=== PATIENT | female | born 1945 | race Caucasian/White ===

== ENCOUNTER → 2017-02-24 | Outpatient (CLI) | payer MEDICARE ==
[~2017-02-24] MED LIST: ALBU8I INH; ALPR0.5T3 PO; AMLO2.5T PO; ASPI-130 PO; ATOR80TA41 PO; CALC-197 PO; CARB25TA PO; FLON0.053; FORT200S; FOSI20TA PO; GLIM2TAB PO; GLUCTAB PO; KLOR10TA8 PO; METO25 PO; MISC1TAB9 PO; PLAV75TA PO; PRIL20TA2 PO; TAB-TAB PO
--- NOTE | 2017-02-27 10:02 | RSPPFT ---
DATE OF PROCEDURE: 02/24/17 COMMENTS: Spirometry with FVC of 2.1 predicted 2.6, FEV1 of 1.4 predicted 1.8, FEV1/FVC ratio 68% predicted 70%. No dramatic changes noticed post-bronchodilator acutely. IMPRESSION: On the basis of the above, patient's flow values show a minimal obstructive lung defect. Lung volumes are within the predicted range. Decreased DLCO.
== END ==
LOC: HRSP 12:47
PROVIDERS: ATTEND Internal Medicine Pulmonary Disease
DX: J98.4 Other disorders of lung (principal)
CPT/HCPCS: 94060; 94620; 94726; 94729

== ENCOUNTER 2017-09-25 01:16 | Emergency (ER) | payer MEDICARE ==
[2017-09-25 01:18] VITALS: BP 206/84; PULSE 107; RESP 16; TEMP 97.9; O2SAT 98
--- NOTE | 2017-09-25 01:52 | PD ---
HPI Chief Complaint: Diabetic Time Seen by Provider: 01:45 Travel History International Travel<30 days: No Contact w/Intl Traveler<30days: No Traveled to known affect area: No History of Present Illness HPI Patient is a 72-year-old female who last few days has had low blood sugars . She kept a diary and shows at some point last night she's been having 47 blood sugar sticks at home. She is on metformin and glimpiride, patient halved her dose last night of the sulfonylurea and still had a low sugar this morning felt shaky confused and diaphoretic She drank orange juice juice to correct it It did not work as it usually does...it did not bring her sugar up . Patient in the ER feels shaky confused sweaty She came by her own car she did not call EMS. Patient has a history of hypertension and non-insulin diabetic. Denies chest pain denies UTI symptoms has a mild congested feeling her nose only. No localized pain. Symptoms of been off and on for the last 24 hours. Arms juice soda did not correct the problem. She did not see her doctor for this. PFSH Past Medical History Hx Anticoagulant Therapy: Yes (PLAVIX) Anxiety: Yes Cancer: No Cardiac Catheterization: Yes (STENT X1 FOR VT 2002) Cardiovascular Problems: Yes (STENT , HX VT) High Cholesterol: Yes Coronary Artery Disease: Yes Diabetes: Yes Endocrine: No Gastrointestinal Disorders: Yes (HX MED. INDUCED ULCER) Genitourinary: No Hepatitis: No Hiatal Hernia: No Hypertension: Yes Immune Disorder: No Musculoskeletal: Yes (NECK SX) Neurologic: Yes (RESTLESS LEGS) Psychiatric: Yes (ANXIETY) Reproductive: No Respiratory: No Myocardial Infarction: Yes Thyroid Disease: Yes (CYST BEING WATCHED) ?: Not Menopausal: Yes Past Surgical History Abdominal Surgery: No AICD: No Body Medical Devices: TITANIUM PLATE IN NECK Coronary Stent: Yes Ear Surgery: No Eye Surgery: Yes (BILATERAL CATARACT) Genitourinary Surgery: No Gynecologic Surgery: No Joint Replacement: No Oral Surgery: Yes (TONSILLECTOMY) Pacemaker: No Thoracic Surgery: Yes (AORTIC ANUERYSM REPAIR FROM TRAUMA) Other Surgery: Yes (LEFT CAROTID ENDARDECTOMY; AORTIC STENTS '14) Social History Alcohol Use: No Tobacco Use: No (QUIT 20 YEARS AGO) Substance Use: No Allergies-Medications (Allergen,Severity, Reaction): Coded Allergies: acetaminophen (Unverified Allergy, Severe, low blood pressure, 09/25/17) propoxyphene (Unverified Allergy, Severe, low blood pressure, 09/25/17) Reported Meds & Prescriptions Reported Meds & Active Scripts Active Reported Plavix (Clopidogrel Bisulfate) 75 Mg Tab 75 Mg PO DAILY Calcium 600+D3 (Calcium Carbonate-Cholecalcife) +D3 Tab 1 Tab PO BID Osteo Bi-Flex/5-Loxin Adv (Glucosamine Sulfate) 1 Tab Tab 1 Tab PO BID Ventolin Hfa (Albuterol Sulfate) 8 Gm Aero 2 Puff INH Q6 * SHAKE WELL BEFORE USE * Fosinopril Sodium 20 Mg Tab 20 Mg PO BID Aspirin Low Dose (Aspirin) 81 Mg Tab 81 Mg PO DAILY Prilosec Otc (Omeprazole Magnesium) 20 Mg Tab 20 Mg PO DAILY Multivitamin (Multivitamins) 1 Tab Tab 1 Tab PO DAILY Glimepiride 2 Mg Tab 2 Mg PO BID Amlodipine Besylate 2.5 mg (Amlodipine Besylate) 2.5 Mg Tab 2.5 Mg PO DAILY Fortical (Calcitonin [place]) 200 Mg/Act Spr 200 Mg NA DAILY Alprazolam 0.5 Mg Tab 0.5 Mg PO BID Klor-Con M10 (Potassium Chloride Microencaps) 10 Meq Tab 10 Meq PO DAILY Flonase (Fluticasone Propionate) 0.05 % Naspr 2 Spr NA DAILY 2 SPRAYS EACH NOSTRIL Sinemet 25/100 (Carbidopa/Levodopa) 25 Mg/100 Mg Tab 1 Tab PO HS Glucophage (Metformin HCl) 500 Mg Tab 1,000 Mg PO BID Metoprolol Tartrate 25 mg (Metoprolol Tartrate) 25 Mg Tab 25 Mg PO BID Lipitor 80 Mg Tab (Atorvastatin) 80 Mg Tab 80 Mg PO HS Review of Systems Except as stated in HPI: all other systems reviewed are Neg Neurologic: Positive: Change in Mentation, Other (confusion shaky weakness hypoglycemic) Physical Exam Narrative GENERAL: diaphoretic seems slightly confused as she relays the history to this MD SKIN: Warm and slightly clammy HEAD: Atraumatic. Normocephalic. EYES: Pupils equal and round. No scleral icterus. No injection or drainage. ENT: No nasal bleeding or discharge. Mucous membranes pink and moist. NECK: Trachea midline. No JVD. CARDIOVASCULAR: Regular rate and rhythm. RESPIRATORY: No accessory muscle use. Clear to auscultation. Breath sounds equal bilaterally. GASTROINTESTINAL: Abdomen soft, non-tender, nondistended. Hepatic and splenic margins not palpable. MUSCULOSKELETAL: Extremities without clubbing, cyanosis, or edema. No obvious deformities. NEUROLOGICAL: Awake and alert. No obvious cranial nerve deficits. Motor grossly within normal limits. Five out of 5 muscle strength in the arms and legs. Normal speech. PSYCHIATRIC: Appropriate mood and affect; insight and judgment normal. slowed slightly Data Data Last Documented VS Vital Signs Date Time Temp Pulse Resp B/P (MAP) Pulse Ox O2 Delivery O2 Flow Rate FiO2 09/25/17 05:50 09/25/17 01:18 97.9 107 16 98 Room Air Orders Orders Dextrose 50% In [place] (Syr) Inj (D50w (Syr (09/25/17 02:00) Complete Blood Count With Diff (09/25/17 01:46) Comprehensive Metabolic Panel (09/25/17 01:46) Lipase (09/25/17 01:46) Urinalysis - C+S If Indicated (09/25/17 01:46) Chest, Pa & Lat (09/25/17 ) Urine Culture (09/25/17 01:56) Ed Discharge Order (09/25/17 05:18) Labs Laboratory Tests Test 09/25/17 01:55 09/25/17 01:56 White Blood Count 12.3 TH/MM3 Red Blood Count 5.01 MIL/MM3 Hemoglobin 13.7 GM/DL Hematocrit 41.7 % Mean Corpuscular Volume 83.2 FL Mean Corpuscular Hemoglobin 27.3 PG Mean Corpuscular Hemoglobin Concent 32.9 % Red Cell Distribution Width 14.6 % Platelet Count 306 TH/MM3 Mean Platelet Volume 8.6 FL Neutrophils (%) (Auto) 72.9 % Lymphocytes (%) (Auto) 15.1 % Monocytes (%) (Auto) 9.1 % Eosinophils (%) (Auto) 1.9 % Basophils (%) (Auto) 1.0 % Neutrophils # (Auto) 8.9 TH/MM3 Lymphocytes # (Auto) 1.8 TH/MM3 Monocytes # (Auto) 1.1 TH/MM3 Eosinophils # (Auto) 0.2 TH/MM3 Basophils # (Auto) 0.1 TH/MM3 CBC Comment DIFF FINAL Differential Comment Blood Urea Nitrogen 19 MG/DL Creatinine 0.76 MG/DL Random Glucose 100 MG/DL Total Protein 7.8 GM/DL Albumin 3.6 GM/DL Calcium Level 9.2 MG/DL Alkaline Phosphatase 185 U/L Aspartate Amino Transf (AST/SGOT) 25 U/L Alanine Aminotransferase (ALT/SGPT) 25 U/L Total Bilirubin 0.2 MG/DL Sodium Level 141 MEQ/L Potassium Level 4.1 MEQ/L Chloride Level 105 MEQ/L Carbon Dioxide Level 28.9 MEQ/L Anion Gap 7 MEQ/L Estimat Glomerular Filtration Rate 75 ML/MIN Lipase 481 U/L Urine Color LIGHT-YELLOW Urine Turbidity CLEAR Urine pH 5.5 Urine Specific [place] 1.005 Urine Protein NEG mg/dL Urine Glucose (UA) NEG mg/dL Urine Ketones NEG mg/dL Urine Occult Blood NEG Urine Nitrite NEG Urine Bilirubin NEG Urine Urobilinogen LESS THAN 2.0 MG/DL Urine Leukocyte Esterase MOD Urine RBC 1 /hpf Urine WBC 12 /hpf Urine Squamous Epithelial Cells <1 /hpf Urine Transitional Epithelial Cells <1 /hpf Urine Amorphous Sediment RARE Urine Bacteria RARE /hpf Urine Mucus FEW /lpf Microscopic Urinalysis Comment CULTURE INDICATED MDM Medical Decision Making Medical Screen Exam Complete: Yes Emergency Medical Condition: Yes Differential Diagnosis over dose antiglycemics vs uti or infection caused sugar to bootom out of unknown infection or system stressor , Narrative Course I give 25 grams IVP glucose with good correction of her Mental status and then repeat finger sticks are normal pt UA and CXR and Labs find no infection . 3 hrs after IVP glucose her BGM still normal to high normal safe for d/ c with outpt follow up. told to reurn if bgm goes loer than 55 otherwise call MD Bee Diagnosis Primary Impression: DM (diabetes mellitus) Patient Instructions: Diabetes Insipidus (ED), General Instructions, Type 2 Diabetes in Adults (ED) Disposition: 01 DISCHARGE HOME Condition: Delgado Moreno MD Sep 25, 2017 01:52
[2017-09-25] MEDS ORDERED: DEXTROSE 50% IN WATER 50 ML SYRINGE IV PUSH ONE (02:00)
[2017-09-25 02:18] LABS: AUTOMATED NEUTROPHIL # 8.9 TH/MM3 (1.8-7.7); BASOPHIL # 0.1 TH/MM3 (0-0.2); EOSINOPHIL # 0.2 TH/MM3 (0-0.4); EOSINOPHIL % 1.9 % (0.0-4.0); HEMATOCRIT 41.7 % (35.0-46.0); HEMO FLAGS DIFF FINAL; LYMPH % 15.1 % (9.0-44.0); LYMPHOCYTE # 1.8 TH/MM3 (1.0-4.8); MEAN CELL VOLUME 83.2 FL (80.0-100.0); MEAN CORPUSCULAR HEMOGLOBIN 27.3 PG (27.0-34.0); MEAN CORPUSCULAR HGB CONC 32.9 % (32.0-36.0); MONO % 9.1 % (0.0-8.0); NEUT % 72.9 % (16.0-70.0); PLATELET COUNT 306 TH/MM3 (150-450); RED BLOOD COUNT 5.01 MIL/MM3 (4.00-5.30); RED CELL DISTRIBUTION WIDTH 14.6 % (11.6-17.2); WHITE BLOOD COUNT 12.3 TH/MM3 (4.0-11.0)
[2017-09-25 02:25] LABS: BACTERIA, URINE RARE /hpf; BLOOD, URINE NEG (NEG); GLUCOSE,URINE NEG (NEG); KETONE, URINE NEG (NEG); MUCUS URINE FEW /lpf (OCC); NITRITE,URINE NEG (NEG); PH, URINE 5.5 (5.0-8.5); SQUAMOUS EPITHELIAL CELL URINE <1 /hpf (0-5); TRANSITIONAL EPI CELLS, URINE <1 /hpf; URINE COLOR LIGHT-YELLOW (YELLW/STRAW)
[2017-09-25 02:26] LABS: COMMENT (UR) CULTURE INDICATED; CULTURE IF INDICATED CULTURE INDICATED
[2017-09-25 02:31] LABS: ALKALINE PHOSPHATASE 185 U/L (45-117); TOTAL BILIRUBIN ADULT 0.2 MG/DL (0.2-1.0)
[2017-09-25 02:33] LABS: ALT (GPT) 25 U/L (10-53); ANION GAP 7 MEQ/L (5-15); AST (GOT) 25 U/L (15-37); BICARBONATE 28.9 MEQ/L (21.0-32.0); BLOOD UREA NITROGEN 19 MG/DL (7-18); CHLORIDE 105 MEQ/L (98-107); GLOMERULAR FILTRATION RATE 75 ML/MIN (>89); POTASSIUM 4.1 MEQ/L (3.5-5.1); SODIUM (NA) 141 MEQ/L (136-145)
--- NOTE | 2017-09-25 02:38 | RADRPT ---
EXAM DATE/TIME: 09/25/2017 02:08 [facility] COMPARISON: No previous studies available for comparison. INDICATIONS : Cough. MEDICAL HISTORY : Diabetes mellitus type II. Chronic obstructive pulmonary disease. Hypertension. coronary artery disease. SURGICAL HISTORY : Abdominal aortic aneurysm repair. bilateral cataract, stents, left ENCOUNTER: Initial ACUITY: 1 day PAIN SCORE: 0/10 LOCATION: Bilateral chest FINDINGS: Frontal and lateral views of the chest demonstrate a normal-sized cardiac silhouette. Lungs are under inflated likely atelectasis at the bases. No effusion, consolidation, or pneumothorax identified. Bon es and soft tissues demonstrate no acute finding. There are old appearing left rib fractures. Cervica l spine hardware is present. CONCLUSION: Underinflation with atelectasis at the bases. Otherwise, no acute finding is identified. Vinod Nash MD on September 25, 2017 at 2:36 Board Certified Radiologist. This report was verified electronically.
== END 2017-09-25 05:51 | disposition home or self-care (01) ==
LOC: NEPC 01:16
DX: E11.649 Type 2 diabetes mellitus with hypoglycemia without coma (principal); B96.89 Other specified bacterial agents as the cause of diseases classified elsewhere; I10 Essential (primary) hypertension; F41.9 Anxiety disorder, unspecified; E78.00 Pure hypercholesterolemia, unspecified; I25.10 Atherosclerotic heart disease of native coronary artery without angina pectoris; E11.9 Type 2 diabetes mellitus without complications; G25.81 Restless legs syndrome; E07.9 Disorder of thyroid, unspecified
CPT/HCPCS: 71020; 80053; 81001; 83690; 85025; 87086; 96374